=== PATIENT | male | born 1985 | race Caucasian/White ===

== ENCOUNTER 2021-12-17 12:12 | Emergency (ER) | payer OTHER, SELFPAY ==
--- NOTE | 2021-12-17 12:35 | ED.GENADULT ---
HPI - General Adult General Chief complaint: Head Injury Stated complaint: Hit head under trailor at work History of Present Illness HPI narrative: The patient is a 36-year-old male who was working on a tractor trailer whereby he hit the back of his head on a bracket resulting in a laceration to the area. No active bleeding. No loss of consciousness. No vomiting. No changes in vision such as blurred vision or diplopia. Not on aspirin or any other blood thinners. Last tetanus unknown. No motor or sensory deficits Related Data Home Medications Medication Instructions Recorded Confirmed No Home Medications 12/17/21 12/17/21 Allergies Allergy/AdvReac Type Severity Reaction Status Date / Time No Known Allergies Allergy Verified 12/17/21 12:42 Review of Systems Review of Systems: All systems reviewed & are unremarkable except as noted in HPI and below Constitutional: Constitutional: Reports no additional constitutional complaints, Denies anorexia, Denies body ache(s), Denies chills, Denies excessive sweating, Denies fatigue, Denies fever(s), Denies frequent falls, Denies headache(s), Denies malaise and Denies poor appetite Eyes: Eyes: Reports no additional eye complaints, Denies blurry vision, Denies change in vision, Denies irritation, Denies itchy eyes and Denies photophobia ENT: Reports system reviewed and no additional complaints, except as documented, Reports Normal hearing present, Denies change in voice, Denies dysphagia, Denies vertigo, Denies dizziness, Denies ear discharge, Denies headache(s), Denies hearing loss, Denies hoarseness, Denies nasal congestion, Denies neck pain, Denies sinus pressure, Denies sore throat and Denies throat swelling Cardiovascular: Cardiovascular: Reports no additional cardiovascular complaints, Denies chest pain, Denies syncope, Denies rapid heart rate, Denies irregular heart rhythm, Denies leg edema, Denies dyspnea and Denies slow heart rate Respiratory: Respiratory: Reports no additional respiratory complaints, Denies cough, Denies dyspnea, Denies stridor and Denies wheezing Gastrointestinal: Gastrointestinal: Reports no additional gastrointestinal complaints, Denies abdominal pain, Denies melena, Denies hematochezia, Denies dysphagia, Denies diarrhea, Denies nausea and Denies vomiting Genitourinary: Genitourinary: Denies hematuria, Denies oliguria, Denies dysuria, Denies flank pain, Denies urinary frequency and Denies urinary urgency Musculoskeletal: Musculoskeletal: Reports no additional musculoskeletal complaints, Denies abnormal gait, Denies back pain, Denies myalgias, Denies arthralgias, Denies joint swelling, Denies limited range of motion, Denies muscle cramps, Denies muscle weakness, Denies neck pain and Denies numbness Integumentary/Breasts: Skin/Breast: Reports system reviewed and no additional complaints, except as docu, Denies breast pain, Denies change in pigmentation, Denies pruritus, Denies erythema and Reports wounds ( at the occipital region of the scalp with a triangular shaped laceration) Neurologic: Reports system reviewed and no additional complaints, except as documented, Reports Normal hearing present, Denies Abnormal speech present, Denies abnormal gait, Denies confusion, Denies vertigo, Denies dizziness, Denies syncope, Denies frequent falls, Denies headache(s), Denies focal weakness, Denies numbness and Denies paresthesias Psychiatric: Psychiatric: Reports no additional psychiatric complaints and Denies confusion Endocrine: Endocrine: Reports no additional endocrine complaints, Denies cold intolerance, Denies excessive sweating, Denies fatigue and Denies heat intolerance Hematologic/Lymphatic: Hematologic/Lymphatic: Reports no additional hematologic/lymphatic complaints, Denies easy bleeding and Denies easy bruising Allergic/Immunologic: Allergic/Immunologic: Reports no additional allergic/immunologic complaints, Denies urticaria, Denies itchy eyes, Denies throat swel
[2021-12-17 12:38] VITALS: BP 138/94; PULSE 97; RESP 18; TEMP 36.9; O2SAT 96
--- NOTE | 2021-12-17 13:11 | PC.NURSE ---
at bedside placing sutures.
[2021-12-17] MEDS: IBUPROFEN 400 MG TABLET 800 MG PO (13:42)
[2021-12-17] MEDS: ACETAMINOPHEN 325 MG TABLET 1000 MG PO (13:43)
[2021-12-17] MEDS: TETANUS,DIPHTHERIA,AC PERTUSSIS ADULT 0.5 ML (ADACEL) IM (13:44)
--- NOTE | 2021-12-17 13:53 | PC.NURSE ---
Tylenol administered as two 500 mg tablets for a total of 1,000 mg as prescribed
[2021-12-17 14:03] VITALS: BP 131/95; PULSE 89; RESP 16; TEMP 36.7; O2SAT 97
== END 2021-12-17 14:03 | disposition home or self-care (01) ==
PROVIDERS: Emergency Provider Emergency Medicine
DX: S01.01XA Laceration without foreign body of scalp, initial encounter (principal); W22.8XXA Striking against or struck by other objects, initial encounter
CPT/HCPCS: 12001; 90471; 90715; 99283; A9270